=== PATIENT | male | born 1985 | race Caucasian/White ===

== ENCOUNTER 2021-08-03 16:34 | Emergency (ER) | payer OTHER ==
[~2021-08-03] VITALS: Ht 172.7 cm; Wt 86.2 kg
[~2021-08-03 16:34] MED LIST: BUPRENORPHINE HC8 MG
[2021-08-03] MEDS ORDERED: XANAX 0.5 MG0.5 MG PO (16:55)
[2021-08-03] MEDS ORDERED: ADDERALL 10 MG10 MG PO (16:55)
[2021-08-03 17:07] LABS: URINE BILIRUBIN NEGATIVE (Negative); URINE BLOOD NEGATIVE (Negative); URINE CLARITY CLEAR; URINE COLOR YELLOW; URINE GLUCOSE-RANDOM NEGATIVE (Negative); URINE KETONES NEGATIVE (Negative); URINE LEUKOCYTES NEGATIVE (Negative); URINE NITRITE NEGATIVE (Negative); URINE PROTEIN NEGATIVE (Negative); URINE SPECIFIC GRAVITY >= 1.030 (1.005-1.030)
[2021-08-03] MEDS ORDERED: DOXYCYCLINE 10100 M2 PO (18:10)
[2021-08-03] MEDS ORDERED: CEFIXIME400 MG PO (18:10)
[2021-08-03 18:21] VITALS: BP 132/93
== END 2021-08-03 18:23 | disposition home or self-care (01) ==
LOC: M.ERS 16:34
PROVIDERS: Physician Assistant
DX: N50.812 Left testicular pain (principal); N50.811 Right testicular pain; N50.89 Other specified disorders of the male genital organs; Z79.899 Other long term (current) drug therapy; Z88.0 Allergy status to penicillin